=== PATIENT | female | born 1975 | race Caucasian/White ===

== ENCOUNTER 2024-06-23 17:29 | Emergency (ER) | payer BC ==
[~2024-06-23] VITALS: Ht 160 cm; Wt 56.2 kg
[2024-06-23 17:32] VITALS: BP_SYST 112; PULSE 120; RESP 17; TEMP 99.4; O2SAT 97
[2024-06-23 18:14] LABS: BILIRUBIN,URINE NEGATIVE (NEGATIVE); BLOOD, URINE 3+ (NEGATIVE); COLOR,URINE YELLOW (YELLOW); GLUCOSE,URINE NEGATIVE (NEGATIVE); KETONES,URINE NEGATIVE (NEGATIVE); LEUKOCYTE ESTERASE ,URINE 3+ (NEGATIVE); NITRITE, URINE NEGATIVE (NEGATIVE); PROTEIN URINE TRACE (NEGATIVE); UROBILINOGEN,URINE 0.2 (0.2-1.0)
[2024-06-23 18:27] LABS: CLARITY/URINE SLIGHTLY HAZY (CLEAR)
[2024-06-23 18:28] LABS: BACTERIA,URINE FEW /HPF (None Seen); MUCUS,URINE None Seen /LPF (None Seen); RBC,URINE 0-3 /HPF (0-3); WBC,URINE 50-80 /HPF (0-3)
[2024-06-23] MEDS ORDERED: cefTRIAXone 1 GM in LIDOCAINE 1%, 20 ML MDV 2.1 ML IM ONE (19:15)
[2024-06-23] MEDS ORDERED: KETOROLAC TROMETHAMINE 60 MG/2 ML VIAL IM ONE (19:15)
[2024-06-23] MEDS ORDERED: cefTRIAXone 1 GM VIAL ONE (20:04)
[2024-06-23] MEDS: NACL 0.9% 1,000 ML IV ONE (20:42)
[2024-06-23] MEDS ORDERED: CIPR500T5 PO (20:46)
[2024-06-23] MEDS ORDERED: NAPR-1172 PO (20:46)
[2024-06-23] MEDS: KETOROLAC TROMETHAMINE 30 MG VIAL IVP ONE (20:47)
[2024-06-23 20:50] VITALS: BP_SYST 120; PULSE 89; RESP 20; TEMP 99.2; O2SAT 99
[2024-06-23] MEDS: cefTRIAXone 1 GM IVPB PREMIX 50 ML IV ONE (20:51)
== END 2024-06-23 20:50 | disposition home or self-care (01) ==
LOC: SED 17:29
DX: N12 Tubulo-interstitial nephritis, not specified as acute or chronic (principal); R10.9 Unspecified abdominal pain; Z98.890 Other specified postprocedural states; Z88.6 Allergy status to analgesic agent; Z79.899 Other long term (current) drug therapy; Z79.2 Long term (current) use of antibiotics
CPT/HCPCS: 99284; 96374; 96375; 81001; 87040; 87086; 87186; 36415; J0696; J1885; J7030; 81000; 81015; 99283